=== PATIENT | male | born 1960 | race Caucasian/White ===

== ENCOUNTER 2016-11-16 13:44 | Day surgery (SDC) | payer OTHER ==
[2016-11-16] MEDS ORDERED: RINGER'S SOLUTION,LACTATED 1,000 ML IV ONE (14:15)
[2016-11-16] MEDS ORDERED: RINGER'S SOLUTION,LACTATED 1,000 ML IV PRN (16:06)
--- NOTE | 2016-11-16 16:34 | OR ---
Operative Report - Dictated Report Narrative: OPERATIVE REPORT DATE OF OPERATION: 11/16/2016 PREOPERATIVE DIAGNOSIS: No prior dedicated colon studies POSTOPERATIVE DIAGNOSIS: Incomplete colonoscopy OPERATION: Colonoscopy SURGEON: Jordyn Bajwa MD ANESTHESIA: JAYLEN Sarah CRNA INDICATIONS FOR PROCEDURE: The patient is a 56-year-old male referred by A Bri MONSON. He has had no previous dedicated colon studies. There is no family history of colon cancer. The patient is currently asymptomatic. FINDINGS: Very tortuous colon with exam only accomplished to the presumed splenic flexure or distal transverse colon (normal exam to the level) NARRATIVE OF PROCEDURE: The patient was identified in the holding area, and prior to the administration of anesthetic, a multidisciplinary timeout was observed. With the patient in the left lateral position and after the administration of intravenous sedation, the perineum was inspected. There was no evidence of pilonidal disease or skin breakdown. The external appearance of the anus was normal. Sphincter tone was good. The flexible fiberoptic colonoscope was inserted into the rectum which was insufflated with air. The rectal mucosa and submucosal vascular pattern appeared normal, the prep was seen to be complete. The scope was advanced proximally through very tortuous colon. What was felt to be the splenic flexure was successfully negotiated however the scope would not advance proximally. Despite standard reduction maneuvers and gentle external manual compression on the abdomen further proximal progress was not accomplished. The scope was withdrawn and a new scope was used with the same result. The mucosa and submucosal vascular pattern of the visualized colon appeared normal, specifically there was no gross evidence to suggest colitis or inflammatory bowel disease and no AV malformations were seen. No diverticulosis was demonstrated. No polyps were encountered. The scope was gradually withdrawn to the level of the rectum. As much insufflated air as possible was removed. The scope was withdrawn from the patient and the procedure terminated. The patient tolerated the anesthetic and procedure well without complication and was transferred back to the ambulatory surgery area awake and in stable condition. The patient remained stable throughout a period of postoperative observation. He denied abdominal discomfort, was able to tolerate by mouth intake, and was up without assistance. I shared the operative findings with the patient and he was given copies of the photographs which appear in the medical record. I explained that because the entire colon was not visualized he would require completion barium enema for screening. He was discharged home with instructions not to engage in hazardous activity today, but may resume normal activity tomorrow, and advance diet as tolerated. He is to continue those medications as listed in the history and physical exam. RECOMMENDATION: The patient will be scheduled for a completion barium enema as an outpatient Reviewed and electronically signed
[2016-11-16 16:56] VITALS: BP 121/76
== END 2016-11-16 13:45 | disposition home or self-care (01) ==
LOC: AMB 13:44
PROVIDERS: ATTEND Surgery
PROC: 0DJD8ZZ Inspection of Lower Intestinal Tract, Via Natural or Artificial Opening Endoscopic (ICD-10-PCS; principal; 2016-11-16 15:10)
DX: Z12.11 Encounter for screening for malignant neoplasm of colon (principal); F17.200 Nicotine dependence, unspecified, uncomplicated; Z68.20 Body mass index [BMI] 20.0-20.9, adult

== ENCOUNTER 2017-02-18 15:09 | Emergency (ER) | payer OTHER ==
[2017-02-18 15:22] VITALS: BP 133/83
--- NOTE | 2017-02-18 15:27 | ERNOTE ---
Lower Extremity HPI - Narrative Date of Service: 02/18/17 - General Lower Extremities Pain: foot: right Time Seen by Provider: 02/18/17 15:26 Source: patient, RN notes reviewed Exam Limitations: no limitations - Immun/Allergies/Home Medications Immunizations: IMMUNIZATION HX Immunizations Up to Date Yes History of Influenza Vaccine No Hx Pneumococcal Vaccination No Allergies/Adverse Reactions: Allergies Allergy/AdvReac Type Severity Reaction Status Date / Time No Known Allergies Allergy Verified 02/18/17 15:22 Home Medications: HOME MEDICATIONS traMADol HCL [Ultram] 50 mg PO BID 11/16/16 [Last Taken Unknown] - History of Present Illness Narrative: 56 y/o male brought to the ED by private vehicle for an injury to his right foot. He was going down the steps at his home when his foot slipped off the edge of a step and twisted. He is able to bear weight but it is painful. He is already having bruising and swelling to the lateral aspect of the right foot. He has a remote history of a right ankle fracture with surgical repair. The ankle is uninjured. He takes Tramadol for chronic neck pain but has not had any today. Date (Duration): 02/18/17 Time (Timing): 14:30 Occurred: this afternoon Location of Incident: home Method of Injury: Reports: twisted Reason for Fall: Reports: slipped Loss of Consciousness: Reports: no loss of consciousness Associated Symptoms: Denies: unable to bear weight, snapping, popping sensation Other Injuries: Reports: none Subsequent Symptoms: Denies: sensory loss, numbness, motor loss Prior Treament: Denies: recently seen, similar symptoms before Review of Systems - Review of Systems Constitutional: Absent: recent illness, fever, malaise EYE: Present: no symptoms reported ENT: Present: no symptoms reported Respiratory: Present: no symptoms reported Cardiology: Present: no symptoms reported Gastrointestinal/Abdominal: Present: no symptoms reported Genitourinary: Present: no symptoms reported Musculoskeletal: Absent: joint pain, joint swelling Skin: Present: change in color. Absent: lesions, lumps Neurological: Absent: weakness, numbness, tingling Endocrine: Present: no symptoms reported Hematologic/Lymphatic: Absent: easy bruising, easy bleeding Psych: Present: no symptoms reported - Patient's Past Medical History Patient History - Medical: Arthritis, Chronic Pain - Neck, Other Patient History - Cardiac/Respiratory: No pertinent hx Patient History - Cancer: No Hx of Cancer Patient History - Surgical Procedures: T & A, Orthopedic Patient History - Other: None - Family History Mother Family History - Medical: Diabetes Type 2 Family History - Cardiac/Respiratory: CVA/Stroke, Myocardial Infarction Family History - Cancer: No pertinent family hx Father Family History - Medical: , No pertinent hx Family History - Cardiac/Respiratory: Aneurysm, CHF, CVA/Stroke Family History - Cancer: Kidney - Social History Living Situations: home Abuse History: Hx -Substance Use Tx Psych History: No pertinent hx Smoking Status: Current every day smoker Alcohol Use: occasionally Drug Use: none, other - former - Immunizations Immunizations Up to Date: Yes Hx Pneumococcal Vaccination: No History of Influenza Vaccine: No Physical Exam - Physical Exam General Appearance: Present: alert, no apparent distress, thin Head Exam: Present: normal inspection, no evidence of injury Respiratory: Present: no respiratory distress, no accessory muscle use Cardiovascular/Chest: Present: normal peripheral pulses Peripheral Pulses: N=norm/S=strong/W=weak/B=bound/A=absent: Dorsalis-pedis (R): Normal Extremity Exam: Present: normal range of motion, bony tenderness - right 5th metatarsal, extremity edema - mild, right lateral foot. Absent: joint swelling Neurological Exam: Present: alert, oriented, normal mood/affect, no motor/ sensory deficits Skin Exam: Present: normal color, warm/dry, other - Ecchymosis to right lateral foot ED Progress - Vital Signs Patient's Vital Signs:: I have reviewed the patient's vital signs. Vital Signs: Vital Signs 02/18/17 15:19 Temperature 37.0 C Pulse Rate 95 Respiratory 16 Rate Blood Pressure 133/83 O2 Sat by Pulse 98 Oximetry - X-Ray X-Ray #1 X-Ray: foot - Right Interpretation: Interp. by me X-ray Comments: 5th metatarsal fracture - Progress/Reassessment Chief Complaint: Foot Injury/Pain Progress:: Improved Procedures Location: Right foot Pre-Proc Neuro Vasc Exam: normal Pre-Made Type: Cam Boot Splint: short leg Alignment good: Yes Splint applied by: Nurse Post-Proc Neuro Vasc Exam: normal Complications: Pt kolton procedure well Departure Clinical Impression: Metatarsal fracture Qualifiers: Encounter type: initial encounter Metatarsal bone: fifth Fracture type: closed Fracture alignment: displaced Laterality: right Qualified Code(s): S92.351A - Displaced fracture of fifth metatarsal bone, right foot, initial encounter for closed fracture - Departure Disposition: Home Follow Up Needed Condition: Good Instructions: Metatarsal Fracture Additional Instructions: Ice and elevate Wear boot Limited weight bearing See Dr. Armstrong as scheduled for follow-up Referrals: Alisa Armstrong DPM [Staff Physician] - 02/22/17 2:45 pm
[2017-02-18] MEDS ORDERED: ACETAMINOPHEN 325 MG TABLET PO ONE (15:39)
[2017-02-18] MEDS ORDERED: traMADol HCL 50 MG TABLET PO ONE (15:39)
[2017-02-18] MEDS ORDERED: traMADol HCL 50 MG TABLET ONE (15:54)
[2017-02-18] MEDS ORDERED: ACETAMINOPHEN 325 MG TABLET ONE (15:54)
== END 2017-02-18 16:15 | disposition home or self-care (01) ==
LOC: ER 15:09
PROC: 2W3SX1Z Immobilization of Right Foot using Splint (ICD-10-PCS; principal; 2017-02-18)
DX: S92.351A Displaced fracture of fifth metatarsal bone, right foot, initial encounter for closed fracture (principal); F17.200 Nicotine dependence, unspecified, uncomplicated; W10.8XXA Fall (on) (from) other stairs and steps, initial encounter; Y92.009 Unspecified place in unspecified non-institutional (private) residence as the place of occurrence of the external cause; G89.29 Other chronic pain; M54.2 Cervicalgia

== ENCOUNTER 2017-04-09 11:53 | Day surgery (SDC) | payer OTHER ==
[~2017-04-09 11:53] MED LIST: RINGER'S SOLUTION,LACTATED 1,000 ML IV ONE; RINGER'S SOLUTION,LACTATED 1,000 ML IV PRN; ceFAZolin SODIUM 1 GM in DEXTROSE 5 % IN WATER 100 ML IV PRN
[2017-04-09] MEDS ORDERED: RINGER'S SOLUTION,LACTATED 1,000 ML IV ONE (12:50)
[2017-04-09] MEDS ORDERED: BUPIVACAINE HCL 50 ML VIAL IJ ONE (13:00)
[2017-04-09] MEDS ORDERED: LIDOCAINE HCL 50 ML VIAL IJ ONE (13:00)
[2017-04-09 15:18] VITALS: BP 124/70
== END 2017-04-09 11:54 | disposition home or self-care (01) ==
LOC: AMB 11:53
PROVIDERS: ATTEND Student in an Organized Health Care Education/Training Program
PROC: 0QSN04Z Reposition Right Metatarsal with Internal Fixation Device, Open Approach (ICD-10-PCS; principal; 2017-04-09 13:00)
DX: S92.351A Displaced fracture of fifth metatarsal bone, right foot, initial encounter for closed fracture (principal); F17.200 Nicotine dependence, unspecified, uncomplicated